=== PATIENT | male | born 1995 | race Caucasian/White ===

== ENCOUNTER 2017-05-24 08:50 | Emergency (ER) | payer SELFPAY ==
[~2017-05-24] VITALS: Ht 175.3 cm; Wt 81.5 kg
[~2017-05-24 08:50] MED LIST: HYDR-3533 PO; NAPR500 PO
[2017-05-24 08:51] VITALS: BP 149/88; PULSE 82; RESP 18; TEMP 98; O2SAT 100
[2017-05-24] MEDS ORDERED: SODIUM CHLOR 0.9% 1000 ML INJ 1,000 ML IV ONE ×2 (09:10)
[2017-05-24] MEDS ORDERED: VANCOMYCIN INJ 1,000 MG in SODIUM CHLOR 0.9% 250 ML INJ 250 ML IV STA (09:10)
[2017-05-24] MEDS ORDERED: SODIUM CHLOR 0.9% 1000 ML INJ 400 ML IV ONE (09:10)
[2017-05-24] MEDS ORDERED: PIPERACIL-TAZO 4.5 GM PREMIX 100 ML IV STA (09:10)
--- NOTE | 2017-05-24 09:10 | PD ---
HPI Chief Complaint: Complaint Time Seen by Provider: 09:06 Travel History International Travel<30 days: No Contact w/Intl Traveler<30days: No Traveled to known affect area: No History of Present Illness HPI 21-year-old male presents to the emergency Department with sudden onset sharp stabbing pain in the left testicle which started this morning. Patient states no fever, chills, dysuria. Patient states no sexual activity in the last 4-5 months. He denies swelling of the area. He states the pain is now about 6 out of 10. He denies penile discharge. No recent injury to the area as noted. No history of heavy lifting. 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; DEPRESSION.) Respiratory: Yes Immunizations Current: Yes Migraines: Yes Seizures: No Thyroid Disease: No Ulcer: No Past Surgical History Appendectomy: Yes Neurologic Surgery: Yes (BRAIN SURGERY 10/10) Other Surgery: No Social History Alcohol Use: No Tobacco Use: No (USES E-CIG NOW) Substance Use: No Allergies-Medications (Allergen,Severity, Reaction): Coded Allergies: No Known Allergies (Verified Adverse Reaction, Unknown, 05/24/17) Reported Meds & Prescriptions Reported Meds & Active Scripts Active Review of Systems Except as stated in HPI: all other systems reviewed are Neg General / Constitutional: No: Fever Eyes: No: Visual changes HENT: No: Headaches Cardiovascular: No: Chest Pain or Discomfort Respiratory: No: Shortness of Breath Gastrointestinal: No: Abdominal Pain Genitourinary: Positive: Other (see history of present illness), No: Urgency, Frequency, Dysuria, Nocturia, Hematuria, Flank Pain, Discharge Musculoskeletal: No: Pain Skin: No Rash Neurologic: No: Weakness Psychiatric: No: Depression Endocrine: No: Polydipsia Hematologic/Lymphatic: No: Easy Bruising Physical Exam Narrative GENERAL: Patient appears in mild distress. SKIN: Warm and dry. Normal color. Normal turgor. No rash. No erythema. HEAD: Atraumatic. Normocephalic. EYES: Pupils equal and round. No scleral icterus. No injection or drainage. ENT: No nasal bleeding or discharge. Mucous membranes pink and moist. Pharynx is clear. Airway is patent. NECK: Trachea midline. Supple and nontender. CARDIOVASCULAR: Regular rate and rhythm. RESPIRATORY: No accessory muscle use. Clear to auscultation. Breath sounds equal bilaterally. GASTROINTESTINAL: Abdomen soft, non-tender, nondistended. Hepatic and splenic margins not palpable. GENITAL: The scrotum appears normal. There is no rash. There is no erythema. There is no significant swelling. His no appreciable hernias. The left testicle is nontender but the epididymis is slightly tender and swollen on the left compared to the right. MUSCULOSKELETAL: Extremities without clubbing, cyanosis, or edema. No obvious deformities. NEUROLOGICAL: Awake and alert. No obvious cranial nerve deficits. Motor grossly within normal limits. Five out of 5 muscle strength in the arms and legs. Normal speech. PSYCHIATRIC: Appropriate mood and affect; insight and judgment normal. Data Data Last Documented VS Vital Signs Date Time Temp Pulse Resp B/P (MAP) Pulse Ox O2 Delivery O2 Flow Rate FiO2 05/24/17 08:51 98.0 82 18 149/88 (108) 100 Room Air Orders Orders Complete Blood Count With Diff (05/24/17 09:26) Comprehensive Metabolic Panel (05/24/17 09:26) Urinalysis - C+S If Indicated (05/24/17 09:26) Gc And Chlamydia Pcr (05/24/17 09:26) Ketorolac Inj (Toradol Inj) (05/24/17 09:30) Ondansetron Inj (Zofran Inj) (05/24/17 09:30) Sodium Chloride 0.9% Flush (Ns Flush) (05/24/17 09:30) Ceftriaxone Inj (Rocephin Inj) (05/24/17 09:45) Doxycycline (Vibramycin) (05/24/17 09:45) [facility] Medical Decision Making Medical Screen Exam Complete: Yes Emergency Medical Condition: Yes Differential Diagnosis Left testicular pain. Epididymitis. Hernia. STD. Narrative Course Patient is medically stable at time of exam. Ultrasound of the scrotum is not felt warranted based on my history and physical. Labs ordered including CBC, CMP, and urinalysis for GC chlamydia. Patient will be treated empirically with Rocephin 1 g IV as well as doxycycline milligrams by mouth now. Patient is given Toradol 30 mg IV as well as 4 mg Zofran IV. Patient will be continued on doxycycline 100 mg twice a day 7 days. Patient is given ibuprofen 800 mg 3 times a day when necessary #30. Patient follow-up with local primary care physician as needed. Diagnosis Primary Impression: Epididymitis, left Referrals: [facility] Patient Instructions: General Instructions Departure Forms: Work Release Enter return to work date: May 25, 2017 Additional Instructions: Patient will be treated empirically with Rocephin 1 g IV as well as doxycycline milligrams by mouth now. Patient is given Toradol 30 mg IV as well as 4 mg Zofran IV. Patient will be continued on doxycycline 100 mg twice a day 7 days. Patient is given ibuprofen 800 mg 3 times a day when necessary #30. Patient follow-up with local primary care physician as needed. Med/Other Pt SpecificInfo: Prescription(s) given Disposition: 01 DISCHARGE HOME Condition: Stable Brooks Brar May 24, 2017 09:10
[2017-05-24] MEDS ORDERED: MORPHINE SULFATE 8 MG/ML INJ IV PUSH ONE (09:15)
[2017-05-24] MEDS ORDERED: KETOROLAC TROMETHAMINE 30 MG/ML (IVP) VIAL IV PUSH ONE (09:15)
[2017-05-24] MEDS ORDERED: ONDANSETRON HCL 4 MG/2 ML VIAL IV PUSH ONE (09:15)
[2017-05-24] MEDS ORDERED: SODIUM CHLORIDE 0.9% FLUSH 10 ML FLUSH IVF PRN (09:30)
[2017-05-24] MEDS ORDERED: KETOROLAC TROMETHAMINE 30 MG/ML (IVP) VIAL IVP ONE (09:30)
[2017-05-24] MEDS ORDERED: ONDANSETRON HCL 4 MG/2 ML VIAL IVP ONE (09:30)
[2017-05-24] MEDS ORDERED: DOXYCYCLINE HYCLATE 100 MG CAP PO ONE (09:45)
[2017-05-24] MEDS ORDERED: cefTRIAXone INJ 1,000 MG in SODIUM CHLORIDE 0.9% INJ 100 ML IV ONE (09:45)
[2017-05-24] MEDS ORDERED: IBUP1TAB7 PO (09:56)
[2017-05-24] MEDS ORDERED: DOXY100C PO (09:56)
[2017-05-24 10:24] LABS: AUTOMATED NEUTROPHIL # 4.2 TH/MM3 (1.8-7.7); BASOPHIL % 0.3 % (0.0-2.0); EOSINOPHIL # 0.1 TH/MM3 (0-0.4); EOSINOPHIL % 2.1 % (0.0-4.0); HEMATOCRIT 43.8 % (39.0-51.0); HEMO FLAGS DIFF FINAL; LYMPH % 30.1 % (9.0-44.0); LYMPHOCYTE # 2.1 TH/MM3 (1.0-4.8); MEAN CELL VOLUME 86.1 FL (80.0-100.0); MEAN CORPUSCULAR HEMOGLOBIN 29.5 PG (27.0-34.0); MEAN CORPUSCULAR HGB CONC 34.3 % (32.0-36.0); MONO % 8.3 % (0.0-8.0); NEUT % 59.2 % (16.0-70.0); PLATELET COUNT 294 TH/MM3 (150-450); RED BLOOD COUNT 5.08 MIL/MM3 (4.50-5.90); RED CELL DISTRIBUTION WIDTH 12.8 % (11.6-17.2); WHITE BLOOD COUNT 7.1 TH/MM3 (4.0-11.0)
[2017-05-24 10:25] LABS: BLOOD, URINE NEG (NEG); GLUCOSE,URINE NEG (NEG); KETONE, URINE NEG (NEG); NITRITE,URINE NEG (NEG); URINE COLOR LIGHT-YELLOW (YELLW/STRAW)
[2017-05-24 10:26] LABS: COMMENT (UR) CULT NOT INDICATED; CULTURE IF INDICATED CULT NOT INDICATED
[2017-05-24 10:40] LABS: ALT (GPT) 22 U/L (12-78); ANION GAP 7 MEQ/L (5-15); AST (GOT) 17 U/L (15-37); BICARBONATE 27.8 MEQ/L (21.0-32.0); BLOOD UREA NITROGEN 14 MG/DL (7-18); CHLORIDE 104 MEQ/L (98-107); GLOMERULAR FILTRATION RATE 94 ML/MIN (>89); POTASSIUM 4.3 MEQ/L (3.5-5.1); SODIUM (NA) 139 MEQ/L (136-145)
[2017-05-24 10:42] LABS: ALKALINE PHOSPHATASE 77 U/L (45-117); TOTAL BILIRUBIN ADULT 0.4 MG/DL (0.2-1.0)
[2017-05-25 03:18] LABS: CHLAMYDIA PCR NOT DETECTED (NOT DETECT); NEISSERIA PCR NOT DETECTED (NOT DETECT)
== END 2017-05-24 12:07 | disposition home or self-care (01) ==
LOC: NEPD 08:50
DX: N45.1 Epididymitis (principal); J45.909 Unspecified asthma, uncomplicated; F32.9 Major depressive disorder, single episode, unspecified; F43.25 Adjustment disorder with mixed disturbance of emotions and conduct
CPT/HCPCS: 80053; 81001; 85025; 87491; 87591; 96365; 96366; 96375; 99284; J0696; J1885; J2405